=== PATIENT | female | born 1945 | race Caucasian/White ===

== ENCOUNTER → 2024-06-14 15:18 | Outpatient (REF) | payer OTHER, SELFPAY ==
--- NOTE | 2024-06-14 16:30 | CARDSERVLU ---
Echocardiogram with Lumason completed after protocol screening completed. Allergies verified.
Patent IV site: 22g inserted in right hand - 1st attempt
IV site flushed with 0.9% NaCl pre and post administration.
Diluted bolus method utilized to enhance visualization of ventricular crain.
Total volume given: 5 mL
Patient tolerated all procedures well without complications.
IV D/C'd and bandage applied after pressure held.
== END ==
LOC: RCS 15:18
PROVIDERS: ATTENDING PHYSICIAN Internal Medicine Cardiovascular Disease; FAMILY PHYSICIAN Internal Medicine
DX: I48.0 Paroxysmal atrial fibrillation (principal)
CPT/HCPCS: 93306; Q9950

== ENCOUNTER → 2024-07-12 11:11 | Outpatient (REF) | payer OTHER, SELFPAY | LOC: DHSLP 11:11 | PROVIDERS: ATTENDING PHYSICIAN Internal Medicine Cardiovascular Disease; FAMILY PHYSICIAN Internal Medicine | DX: G47.33 Obstructive sleep apnea (adult) (pediatric) (principal) | CPT/HCPCS: 95806 ==